=== PATIENT | female | born 1970 | race Caucasian/White ===

== ENCOUNTER 2019-02-22 20:09 | Emergency (ER) | payer OTHER ==
[~2019-02-22] VITALS: Ht 154.9 cm; Wt 106.4 kg
[~2019-02-22 20:09] MED LIST: CEPH-443 PO; HYDR-3498 PO; PRE NATAL VIT.
[2019-02-22 20:15] VITALS: BP 156/73; PULSE 102; RESP 20; Ht 154.9 cm; Wt 106.4 kg
--- NOTE | 2019-02-22 21:43 | ERD ---
ER Documentation Chief Complaint Chief Complaint L ankle pain/swelling since eysterday- denies trauma/injury HPI 48-year-old female, previously healthy, presents to the emergency department, complaining of left ankle pain and edema after sustaining a forced inversion that occurred yesterday. The pain is dull, constant, 7/10, worsened by weightbearing activities. She denies distal weakness, numbness or tingling. ROS All systems reviewed and are negative except as per history of present illness. Medications Home Meds Active Scripts Hydrocodone Bit-Acetaminophen* ([place]*) 5-325 Mg Tab, 1 TAB PO Q6 PRN for PAIN, #13 TAB Prov:CIARA ALVAREZ DO 07/22/15 Cephalexin* (Keflex*) 500 Mg Capsule, 500 MG PO QID for 5 Days, CAP Prov:CIARA ALVAREZ DO 07/22/15 Reported Medications [Pre Vit.] No Conflict Check 11/12/10 Allergies Allergies: Coded Allergies: No Known Allergy (Verified , 11/11/11) PMhx/Soc History of Surgery: Yes (1x c section) Anesthesia Reaction: No Hx Neurological Disorder: No Hx Respiratory Disorders: No Hx Cardiac Disorders: No Hx Psychiatric Problems: No Hx Miscellaneous Medical Probl: No Hx Alcohol Use: No Hx Substance Use: No Hx Tobacco Use: No Smoking Status: Never smoker FmHx Family History: No diabetes, No coronary disease Physical Exam Vitals Vital Signs Date Temp Pulse Resp B/P (MAP) Pulse Ox O2 O2 Flow FiO2 Time Delivery Rate 02/22/19 98.7 102 20 156/73 99 20:15 (100) Physical Exam Const: No acute distress Head: Atraumatic Eyes: Normal Conjunctiva ENT: Normal External Ears, Nose and Mouth. Neck: Full range of motion. No meningismus. Resp: Clear to auscultation bilaterally Cardio: Regular rate and rhythm, no murmurs Abd: Soft, non tender, non distended. Normal bowel sounds Skin: No petechiae or rashes Back: No midline or flank tenderness Ext: Left ankle: Lateral malleolar edema with ecchymosis and decreased range of motion due to pain. No cyanosis, or edema Neur: Awake and alert Psych: Normal Mood and Affect Procedures/MDM Acute right ankle pain: no red flags. Differential diagnosis include but not limited to: Ankle sprain/strain, ligament injury, arthritis; low suspicion for fracture, dislocation, septic arthritis. Neurovascular exam grossly intact. no clinical findings suggestive of acute infectious process, no deformity, no rashes. Pertinent Data: X-rays: No fracture or dislocation Physical examination and clinical presentation consistent most likely with ankle sprain. During the ED course the patient received treatment with short leg posterior splint and crutches presenting overall improvement of the symptoms. Results and clinical impression discussed with patient who agrees with management. The patient is stable to be treated outpatient and will be d ischarged home with recommendations for ice, rest and partial immobilization. NSAIDs 3 times daily for 5 days and close monitoring. The patient was instructed to follow up with the primary care provider in the next 48h. If symptoms persist, worsen or new symptoms develop, then patient should return to the ED immediately. Instructions explained and given to patient with acknowledgment and demonstrated understanding. Disclaimer: Inadvertent spelling and grammatical errors are likely due to EHR/dictation software use and do not reflect on the overall quality of patient care. Also, please note that the electronic time recorded on this note does not necessarily reflect the actual time of the patient encounter. Departure Diagnosis: Primary Impression: Left ankle sprain Condition: Stable Patient Instructions: Self-Care for Strains and Sprains Additional Instructions: Thank you very much for allowing us to participate in your care. Your health and safety is our top priority at [facility]. The evaluation in the emergency department has been done to rule out an acute emergency. Chronic, [id number] conditions may have not been evaluated; therefore, you need to follow up with a primary care provider in the next 48h. If symptoms persist, worsen or new symptoms develop, then patient should return to the ED immediately. Call your primary care doctor TOMORROW for an appointment during the next 2-4 days and bring all the information provided. Have prescriptions filled and follow precisely the directions on the label. If the symptoms get worse and your provider is unavailable, return to the Emergency Department immediately. EARL CORTES MD Feb 22, 2019 21:43
[2019-02-22] MEDS ORDERED: IBUP-1561 PO (21:44)
[2019-02-22] MEDS ORDERED: ACET325T33 PO (21:44)
== END 2019-02-22 22:26 | disposition home or self-care (01) ==
LOC: FTE 20:09
DX: S93.402A Sprain of unspecified ligament of left ankle, initial encounter (principal); X50.1XXA Overexertion from prolonged static or awkward postures, initial encounter; Y92.9 Unspecified place or not applicable
CPT/HCPCS: 99282

== ENCOUNTER 2019-03-02 16:59 | Emergency (ER) | payer OTHER ==
[~2019-03-02] VITALS: Ht 152.4 cm; Wt 105.0 kg
[~2019-03-02 16:59] MED LIST changes: +ACET325T33 PO; +IBUP-1561 PO
[2019-03-02 17:14] VITALS: BP 155/74; PULSE 86; RESP 18; Ht 152.4 cm; Wt 105.0 kg
[2019-03-02] MEDS ORDERED: NAPR-985 PO (18:53)
--- NOTE | 2019-03-02 19:00 | ERD ---
ER Documentation Chief Complaint Chief Complaint lt ankle pain , twisted x 1 week ago HPI This is a 48-year-old female patient who presents to emergency room with complaint of left ankle pain. Patient twisted ankle 1 week ago was seen at this ER, placed in air splint and provided with crutches and NSAIDs. No x-ray was taken. 2 days ago patient said she felt better and took off air splint and was walking around without difficulty. Today left ankle started with pain and swelling, she went to her primary care provider who sent her back to this ER for x-ray. ROS All systems reviewed and are negative except as per history of present illness. Medications Home Meds Active Scripts Naproxen* (Naprosyn*) 500 Mg Tablet, 500 MG PO BID PRN for PAIN AND/OR INFLAMMATION, #30 TAB Prov:LACI CULP NP 03/02/19 Acetaminophen* (Tylenol*) 325 Mg Tablet, 2 TAB PO Q6 PRN for PAIN AND OR ELEVATED TEMP, #20 TAB Prov:EARL CORTES MD 02/22/19 Ibuprofen* (Motrin*) 400 Mg Tab, 400 MG PO Q6H PRN for PAIN AND OR ELEVATED TEMP, #20 TAB Prov:EARL CORTES MD 02/22/19 Hydrocodone Bit-Acetaminophen* ([place]*) 5-325 Mg Tab, 1 TAB PO Q6 PRN for PAIN, #13 TAB Prov:CIARA ALVAREZ DO 07/22/15 Cephalexin* (Keflex*) 500 Mg Capsule, 500 MG PO QID for 5 Days, CAP Prov:CIARA ALVAREZ DO 07/22/15 Reported Medications [Pre Vit.] No Conflict Check 11/12/10 Allergies Allergies: Coded Allergies: No Known Allergy (Verified , 11/11/11) PMhx/Soc History of Surgery: Yes (1x c section) Anesthesia Reaction: No Hx Neurological Disorder: No Hx Respiratory Disorders: No Hx Cardiac Disorders: No Hx Psychiatric Problems: No Hx Miscellaneous Medical Probl: No Hx Alcohol Use: No Hx Substance Use: No Hx Tobacco Use: No Smoking Status: Never smoker FmHx Family History: No diabetes, No coronary disease, No other Physical Exam Vitals Vital Signs Date Temp Pulse Resp B/P (MAP) Pulse Ox O2 O2 Flow FiO2 Time Delivery Rate 03/02/19 98.1 86 18 155/74 98 17:14 (101) Physical Exam Const: No acute distress Head: Atraumatic Eyes: Normal Conjunctiva ENT: Normal External Ears, Nose and Mouth. Neck: Full range of motion. No meningismus. Resp: Clear to auscultation bilaterally Cardio: Regular rate and rhythm, no murmur Ext: No cyanosis, or edema: LLE: +tenderness at posterior distal tibia, no metacarpal tenderness, strength, sensation, circulation intact, no abrasions or bruising Neur: Awake and alert Psych: Normal Mood and Affect Procedures/MDM This is a 48-year-old female patient presents emergency room with complaint of left ankle pain. ED COURSE: The patient was stable throughout ED course. DIAGNOSTIC IMAGING: Read by radiologist. Soft tissue swelling without evidence of acute fracture or dislocation PROCEDURES: Application of walking boot to left lower extremity. Post splint application + CMS, good fit, if steady gait MEDICATIONS GIVEN: She declines MDM: Patient's extremity symptoms have stabilized while they have been evaluated in the department and are appropriate for outpatient follow up. No evidence of compartment syndrome, neurologic injury, vascular injury, open joint, open fracture, tendon laceration, or foreign body. Patient demonstrates safe steady gait with walking boot. Patient provided with instructions on care of boot, care of foot, rice, use of NSAIDs, follow-up with primary care provider. DISPOSITION: The patient has been discharge home to follow-up with community physician. Departure Diagnosis: Primary Impression: Ankle sprain Condition: Stable Patient Instructions: R.I.C.E., Treating Ankle Sprains Referrals: [facility] YOU HAVE RECEIVED A MEDICAL SCREENING EXAM AND THE RESULTS INDICATE THAT YOU DO NOT HAVE A CONDITION THAT REQUIRES URGENT TREATMENT IN THE EMERGENCY DEPARTMENT. FURTHER EVALUATION AND TREATMENT OF YOUR CONDITION CAN WAIT UNTIL YOU ARE SEEN IN YOUR DOCTORS OFFICE WITHIN THE NEXT 1-2 DAYS. IT IS YOUR RESPONSIBILITY TO MAKE AN APPOINTMENT FOR FOLOW-UP CARE. IF YOU HAVE A PRIMARY DOCTOR --you should call your primary doctor and schedule an appointment IF YOU DO NOT HAVE A PRIMARY DOCTOR YOU CAN CALL OUR PHYSICIAN REFERRAL HOTLINE AT IF YOU CAN NOT AFFORD TO SEE A PHYSICIAN YOU CAN CHOSE FROM THE FOLLOWING [facility] [id number] [facility] [facility] [address] [facility] [facility] [address] [facility] [address] [facility] [address] [facility]. [facility] [address] Additional Instructions: Thank you very much for allowing us to participate in your care. Your health and safety is our top priority at [facility]. Call your primary care doctor TOMORROW for an appointment during the next 2-4 days and bring all the information and medications prescribed. Have prescriptions filled and follow precisely the directions on the label. If the symptoms get worse and your provider is unavailable, return to the Emergency Department immediately. KEEP WALKING BOOT IN PLACE UNTIL YOU FOLLOW-UP WITH YOUR PRIMARY CARE DOCTOR USE NAPROSYN TWICE DAILY NEEDED FOR PAIN AND DISCOMFORT USE ICE AND ELEVATE LEG FREQUENTLY TO ALLEVIATE SWELLING LACI CULP NP Mar 02, 2019 19:00
== END 2019-03-02 19:19 | disposition home or self-care (01) ==
LOC: FTE 16:59
DX: S93.402A Sprain of unspecified ligament of left ankle, initial encounter (principal); X50.1XXA Overexertion from prolonged static or awkward postures, initial encounter; Y92.9 Unspecified place or not applicable
CPT/HCPCS: 73610; Z7502

== ENCOUNTER 2019-04-10 07:56 | Day surgery (SDC) | payer BC, OTHER ==
[2019-04-10] VITALS (10 sets, daily range): BP systolic 105–149; BP diastolic 51–77; PULSE 71–91; RESP 15–33; Ht 152.4 cm; Wt 105.2 kg
[~2019-04-10] VITALS: Ht 152.4 cm; Wt 105.2 kg
[~2019-04-10 07:56] MED LIST changes: +CEFAZOLIN 2 GM/50 ML (PMX) 50 ML IVPB ONE; +NAPR-985 PO; +SOD CHLORIDE 0.9% 1,000 ML IV ONE; +SOD CHLORIDE 0.9% 1,000 ML IV SCH
[2019-04-10] MEDS ORDERED: BUPIVACAINE 0.25% (MPF) 30 ML INJ ONE (11:12)
--- NOTE | 2019-04-10 11:18 | PREAC ---
Date/Time of Note Date/Time of Note DATE: 04/10/19 TIME: 11:17 Anesthesia Eval and Record Evaluation Time Pre-Procedure Interview DATE: 04/10/19 TIME: 11:17 Age 48 Sex female NPO: 8 hrs Preoperative diagnosis back mass Planned procedure excision Past Medical History Past Medical History: Includes GI: Morbid obesity Surgery & Anesthesia Issues No known issue Meds Anticoagulation: No Beta Ricardo within 24 hr: No Reason Beta Ricardo not given: Pt. not on B-Ricardo Discontinued Reported Medications [Pre Vit.] No Conflict Check 11/12/10 Discontinued Scripts Naproxen* (Naprosyn*) 500 Mg Tablet, 500 MG PO BID PRN for PAIN AND/OR INFLAMMATION, #30 TAB Prov:LACI CULP NP 03/02/19 Acetaminophen* (Tylenol*) 325 Mg Tablet, 2 TAB PO Q6 PRN for PAIN AND OR ELEVATED TEMP, #20 TAB Prov:EARL CORTES MD 02/22/19 Ibuprofen* (Motrin*) 400 Mg Tab, 400 MG PO Q6H PRN for PAIN AND OR ELEVATED TEMP, #20 TAB Prov:EARL CORTES MD 02/22/19 Hydrocodone Bit-Acetaminophen* ([place]*) 5-325 Mg Tab, 1 TAB PO Q6 PRN for PAIN, #13 TAB Prov:CIARA ALVAREZ DO 07/22/15 Cephalexin* (Keflex*) 500 Mg Capsule, 500 MG PO QID for 5 Days, CAP Prov:CIARA ALVAREZ DO 07/22/15 Current Medications Sodium Chloride 1,000 ml @ 75 mls/hr [id number] ONCE IV Last administered on 04/10/19at 10:38; Admin Dose 75 MLS/HR; Start 04/10/19 at 07:30; Stop 04/10/19 at 20:49 Meds reviewed: Yes Allergies Coded Allergies: No Known Allergy (Verified , 04/10/19) Allergies Reviewed: Yes Labs/Studies Labs Reviewed: Reviewed by anesthesiologist Result Diagram: 04/10/19 0911 04/10/19 0911 Laboratory Tests 04/10/19 09:11 test: Negative Pre-procedure Exam Last vitals Vital Signs Date Temp Pulse Resp B/P (MAP) Pulse Ox O2 O2 Flow FiO2 Time Delivery Rate 7/22/19 97.3 91 16 149/77 100 Room Air 10:28 (101) Airway: Adequate mouth opening, Adequate thyromental dist Mallampati: Mallampati IV Teeth: Normal Lung: Normal Heart: Normal ASA Physical Status ASA physical status: 2 Emergency: None Pre-operative Attestations Prior to commencing anesthesia and surgery, the patient was re-evaluated, there was verification of: *The patient's identity *The results of appropriate recent lab work and preoperative vital signs *The above evaluation not changing prior to induction *Anesthetic plan, risk benefits, alternative and complications discussed with patient/family; questions answered; patient/family understands, accepts and wishes to proceed. GIOVANNY DIETRICH DO Apr 10, 2019 11:18
[2019-04-10] MEDS ORDERED: HYDROmorphONE 1 MG/5 ML IV SYRINGE IV PRN ×2 (11:30)
[2019-04-10] MEDS ORDERED: PROPOFOL 20 ML ONE (11:39)
[2019-04-10] MEDS ORDERED: LIDOCAINE 2% (SDV) 5 ML INJ ONE (11:39)
[2019-04-10] MEDS ORDERED: FENTAnyl 50 MCG/ML VIAL ONE (11:39)
[2019-04-10] MEDS ORDERED: CEFAZOLIN 1 GM INJ ONE ×2 (11:39→11:55)
[2019-04-10] MEDS ORDERED: SEVOFLURANE 15 MIN ONE (11:39)
[2019-04-10] MEDS ORDERED: MIDAZOLAM 1 MG/ML 2 ML INJ ONE (11:40)
--- NOTE | 2019-04-10 12:33 | PAC ---
Date/Time of Note Date/Time of Note DATE: 04/10/19 TIME: 12:32 Post-Anesthesia Notes Post-Anesthesia Note Last documented vital signs Vital Signs Date Temp Pulse Resp B/P (MAP) Pulse Ox O2 O2 Flow FiO2 Time Delivery Rate 04/10/19 98 91 16 130/65 100 Room Air 1232 Activity: WNL Respiratory function: WNL Cardiovascular function: WNL Mental status: Baseline Pain reasonably controlled: Yes Hydration appropriate: Yes Nausea/Vomiting absent: Yes GIOVANNY DIETRICH DO Apr 10, 2019 12:33
--- NOTE | 2019-04-10 13:51 | OPR ---
Date/Time of Note Date/Time of Note DATE: 04/10/19 TIME: 13:49 Operative Report Procedure Date: Apr 10, 2019 Preoperative Diagnosis right back mass Postoperative Diagnosis same Operation/Procedure Performed 1. excision of right back mass 5 cm 2. localized adjacent tissue transfer with the use of skin flaps 10 sq cm defect of back 3. subcutaneous therapeutic injection of local anesthesia Surgeon see signature line Perfume And Toilet Water Maker none Anesthesia Type: general Estimated Blood Loss: 0 - 10 ml's Transfusion none Specimen right back mass Grafts/Implants none Complications none Pt Condition Post Procedure: stable Indications This is a 48-year-old female with right back mass. She required surgical excision. Risks alternatives benefits and personally discussed the patient. Patient expressed understanding consents to the operation. Procedure Description Patient is taken to the OR and prepped and draped in usual sterile fashion. Surgical time was performed. IV antibiotics given. Elliptical incision was made over the back mass. Dissection with cautery skin onto the mass. The mass is not circumferentially excised. Good hemostasis status. Due to tissue defect localization to stress her with these of skin flaps was performed. Multilayer closed with interrupted 3-0 Vicryl and skin heri. Therapeutic contains local anesthesia was injected at the incision site. Dry dressings were applied. Marla LLOYD Apr 10, 2019 13:51
[2019-04-10] MEDS ORDERED: HYDROCODONE/APAP (5/325) TAB PO ONE (14:00)
== END 2019-04-10 14:30 | disposition home or self-care (01) ==
LOC: SDS 07:56
PROVIDERS: ATTEND Surgery
DX: L72.0 Epidermal cyst (principal)
CPT/HCPCS: 14000; 80053; 85025; 85610; 85730; 88307; J0690; J2250; J3010; J7030; Z7512; Z7610